=== PATIENT | male | born 2000 | race Caucasian/White ===

== ENCOUNTER 2018-06-23 01:27 | Observation (INO) | payer OTHER ==
[2018-06-23] MEDS ORDERED: ONDANSETRON 4 MG/2 ML VIAL ONE ×2 (01:35→03:32)
[2018-06-23] MEDS ORDERED: NS 1,000 ML IV ONE (01:44)
--- NOTE | 2018-06-23 01:45 | EDPHY ---
H & P Stated Complaint: RLQ [id number] 06/22 Time Seen by Provider: 06/23/18 01:32 HPI/ROS: HPI The patient presents with right lower quadrant abdominal pain that began at about 10:00 p.m. Tonight. Symptoms started slowly and got progressively worse. Initially the pain was diffuse in his lower abdomen, however now it is only in the right lower quadrant. It is aching in nature. It is worse when he moves. He had 1 episode of vomiting. He has not had a fever. He ate dinner at about 7:00 p.m.. REVIEW OF SYSTEMS 10 systems were reviewed and negative with the exception of the elements mentioned in the history of present illness. PMHx: Healthy, no diabetes Soc Hx: College student PHYSICAL General Appearance: Alert, no distress Eyes: Pupils equal and round no pallor or injection ENT, Mouth: Mucous membranes moist Respiratory: There are no retractions, lungs are clear to auscultation Cardiovascular: Regular rate and rhythm Gastrointestinal: Abdomen is soft and tender in the right lower quadrant, no masses, bowel sounds normal Neurological: A&O, moves all extremities Skin: Warm and dry, no rashes Musculoskeletal: Neck is supple non tender Extremities: symmetrical, full range of motion Psychiatric: Patient is oriented X 3, there is no agitation Source: Patient Exam Limitations: No limitations - Personal History Current Tetanus Diphtheria and Acellular Pertussis (TDAP): Yes - Medical/Surgical History Hx Asthma: No Hx Chronic Respiratory Disease: No Hx Diabetes: No Hx Cardiac Disease: No Hx Renal Disease: No Hx Cirrhosis: No Hx Alcoholism: No Hx HIV/AIDS: No Hx Splenectomy or Spleen Trauma: No Other PMH: denies - Social History Smoking Status: Never smoked Constitutional: Initial Vital Signs Temperature (C) 36.8 C 06/23/18 01:29 Heart Rate 84 06/23/18 01:29 Respiratory Rate 16 06/23/18 01:29 Blood Pressure 124/63 H 06/23/18 01:29 O2 Sat (%) 96 06/23/18 01:29 O2 Delivery Mode Room Air Allergies/Adverse Reactions: No Known Allergies Allergy (Unverified 06/23/18 01:28) Home Medications: Medication Instructions Recorded Pepto-Bismol 06/23/18 Medical Decision Making - Diagnostics Imaging Results: Ultrasound right lower quadrant though is blind noncompressible appendix measuring up to 1 mm in the area of maximal tenderness, consistent with acute appendicitis Imaging: Discussed imaging studies w/ electroencephalograph technician Radiologist, I viewed and interpreted images myself Differential Diagnosis: 17-year-old male presents with several hours of right lower quadrant abdominal pain, nausea, vomiting, anorexia. This is concerning for appendicitis versus mesenteric adenitis. Labs reveal a leukocytosis of 17,000. Ultrasound confirms appendicitis. I consulted with Dr. Mckinnon of General surgery who will see the patient. I have ordered antibiotics and fluids for him. - Data Points Laboratory Results: Laboratory Results 06/23/18 01:40 06/23/18 01:40 06/23/18 06/23/18 01:40 01:40 WBC 17.69 10^3/uL H 10^3/uL (3.80-9.50) RBC 4.86 10^6/uL 10^6/uL (4.40-6.38) Hgb 15.9 g/dL g/dL (13.7-17.5) Hct 45.7 % % (40.0-51.0) MCV 94.0 fL fL (81.5-99.8) MCH 32.7 pg pg (27.9-34.1) MCHC 34.8 g/dL g/dL (32.4-36.7) RDW 11.9 % % (11.5-15.2) Plt Count 207 10^3/uL 10^3/uL (150-400) MPV 9.1 fL fL (8.7-11.7) Neut % (Auto) 77.3 % H % (39.3-74.2) Lymph % (Auto) 15.2 % % (15.0-45.0) [place] % (Auto) 6.3 % % (4.5-13.0) Eos % (Auto) 0.7 % % (0.6-7.6) Baso % (Auto) 0.2 % L % (0.3-1.7) Nucleat RBC Rel Count 0.0 % % (0.0-0.2) Absolute Neuts (auto) 13.67 10^3/uL H 10^3/uL (1.70-6.50) Absolute Lymphs (auto) 2.69 10^3/uL 10^3/uL (1.00-3.00) Absolute Monos (auto) 1.11 10^3/uL H 10^3/uL (0.30-0.80) Absolute Eos (auto) 0.13 10^3/uL 10^3/uL (0.03-0.40) Absolute Basos (auto) 0.04 10^3/uL 10^3/uL (0.02-0.10) Absolute Nucleated RBC 0.00 10^3/uL 10^3/uL (0-0.01) Immature Gran % 0.3 % % (0.0-1.1) Immature Gran # 0.05 10^3/uL 10^3/uL (0.00-0.10) Sodium 140 mEq/L mEq/L (135-145) Potassium 3.8 mEq/L mEq/L (3.5-5.2) Chloride 102 mEq/L mEq/L (97-110) Carbon Dioxide 28 mEq/l mEq/l (22-31) Anion Gap 10 mEq/L mEq/L (6-14) BUN 13 mg/dL mg/dL (7-23) Creatinine 1.1 mg/dL mg/dL (0.7-1.3) Estimated GFR > 60 Glucose 121 mg/dL H mg/dL (70-100) Calcium 9.3 mg/dL mg/dL (8.5-10.4) Total Bilirubin 0.3 mg/dL mg/dL (0.1-1.4) AST 23 IU/L IU/L (17-59) ALT 18 IU/L L IU/L (21-72) Alkaline Phosphatase 73 IU/L IU/L (38-126) Total Protein 7.6 g/dL g/dL (6.3-8.2) Albumin 4.6 g/dL g/dL (3.5-5.0) Medications Given: Discontinued Medications Sodium Chloride (Ns) 1,000 mls @ 0 mls/hr IV EDNOW ONE; Wide Open PRN Reason: Protocol Stop: 06/23/18 01:45 Last Admin: 06/23/18 01:52 Dose: 1,000 mls Ceftriaxone Sodium/Dextrose (Rocephin 1 Gm (Premix)) 50 mls @ 100 mls/hr IV EDNOW ONE PRN Reason: Protocol Stop: 06/23/18 02:43 Last Admin: 06/23/18 02:20 Dose: 50 mls Metronidazole/Sodium Chloride (Flagyl 500 Mg (Premix)) 100 mls @ 100 mls/hr IV EDNOW ONE PRN Reason: Protocol Stop: 06/23/18 03:14 Last Admin: 06/23/18 02:46 Dose: 100 mls Departure - Departure Disposition: [facility] Inpatient Acute Clinical Impression: Acute appendicitis Qualifiers: Acute appendicitis type: with localized peritonitis Appendicitis gangrene presence: without gangrene Appendicitis perforation presence: without perforation Appendicitis abscess presence: without abscess Qualified Code(s): K35.30 - Acute appendicitis with localized peritonitis, without perforation or gangrene Condition: Fair
[2018-06-23 01:49] LABS: PLATELET COUNT 207 10^3/uL (150-400)
[2018-06-23] MEDS ORDERED: NS 1,000 ML IV SCH (02:15)
[2018-06-23] MEDS ORDERED: HEPARIN 5,000 UNIT/0.5 ML INJ ONE (03:14)
[2018-06-23] MEDS ORDERED: ceFAZolin 1 GM/5 ML SYR ONE (03:15)
[2018-06-23] MEDS ORDERED: PROPOFOL 200 MG/20 ML VIAL ONE (03:31)
[2018-06-23] MEDS ORDERED: fentaNYL 100 MCG/2 ML INJ ONE ×3 (03:32→04:42)
[2018-06-23] MEDS ORDERED: LIDOCAINE 2% 5 ML SDV ONE (03:32)
[2018-06-23] MEDS ORDERED: DEXAMETHASONE 4 MG/ML VIAL ONE ×2 (03:32)
[2018-06-23] MEDS ORDERED: ROCURONIUM 50 MG/5 ML VIAL ONE (03:33)
[2018-06-23] MEDS ORDERED: HYDROmorphONE/DILAUDID 1 MG/ML INJ IVP PRN (03:39)
[2018-06-23] MEDS ORDERED: MIDAZOLAM 2 MG/2 ML VIAL ONE (03:46)
[2018-06-23] MEDS ORDERED: MIDAZOLAM 2 MG/2 ML VIAL IVP ONE (03:46)
--- NOTE | 2018-06-23 03:48 | PDANEPAE ---
ANE History of Present Illness RLQ pain. suspected appendicitis ANE Past Medical History - Cardiovascular History Hx Hypertension: No Hx Arrhythmias: No Hx Chest Pain: No Hx Coronary Artery / Peripheral Vascular Disease: No Hx CHF / Valvular Disease: No Hx Palpitations: No - Pulmonary History Hx COPD: No Hx Asthma/Reactive Airway Disease: No Hx Recent Upper Respiratory Infection: No Hx Oxygen in Use at Home: No Hx Sleep Apnea: No - Endocrine History Hx Diabetes: No Hypothyroid: No Hyperthyroid: No Obesity: no - Renal History Hx Renal Disorders: No - Liver History Hx Hepatic Disorders: No ANE Review of Systems Review of systems is: negative Review of Systems: - Exercise capacity Exercise capacity: >=4 METS ANE Patient History - Allergies Allergies/Adverse Reactions: No Known Allergies Allergy (Unverified 06/23/18 01:28) - Home Medications Home medications: none Home Medications: Pepto-Bismol 06/23/18 [Last Taken Unknown] - NPO status NPO Status: no food or drink >8 hours NPO Since - Liquids (Date): 06/22/18 NPO Since - Liquids (Time): 23:00 NPO Since - Solids (Date): 06/22/18 NPO Since - Solids (Time): 19:00 - Anes Hx Anes Hx: no prior problems - Smoking Hx Smoking Status: Never smoked - Family Anes Hx Family Anes Hx: none ANE Labs/Vital Signs - Labs Result Diagrams: 06/23/18 01:40 06/23/18 01:40 - Vital Signs Vital Signs: reviewed preoperatively; see RN documention for details Blood Pressure: 119/65 Heart Rate: 64 Respiratory Rate: 16 O2 Sat (%): 97 Height: 177.8 cm Weight: 68.039 kg ANE Physical Exam - Airway Neck exam: FROM Mallampati Score: Class 1 Mouth exam: normal dental/mouth exam - Pulmonary Pulmonary: no respiratory distress - Cardiovascular Cardiovascular: regular rate and rhythym - ASA Status ASA Status: I, E ANE Anesthesia Plan Anesthesia Plan: general endotracheal anesthesia
[2018-06-23] MEDS ORDERED: LR 1,000 ML IV SCH (04:00)
--- NOTE | 2018-06-23 04:35 | GHP ---
DATE OF ADMISSION: 06/23/2018 ADMITTING DIAGNOSIS: Acute appendicitis. HISTORY: The patient is a 17-year-old student at . At 7 p.m. tonight, he had chicken wings and Dr Pepper; at 10 p.m., he had onset of a "stomach pain;" at 11:45, he vomited. The pain became localized in the right lower quadrant. He tried Pepto-Bismol and 7 Up without effect and at 1:15, he came to the ER. There is no history of a recent upper respiratory tract infection or diarrhea. There is no history of a similar abdominal process or abdominal surgery. There is no history of antibiotic use or travel in the last 6 months, and there is no personal or family history of inflammatory bowel disease. PAST MEDICAL HISTORY: He does not smoke or use tobacco and never has. He does drink approximately 5 drinks 1 night a week. ALLERGIES: He has use no known drug allergies. MEDICATIONS: He is not taking medications on a regular basis. PAST SURGICAL HISTORY: His only surgery has been wisdom tooth extraction. There is no history of rheumatic fever, tuberculosis, hepatitis, or transfusions. REVIEW OF SYSTEMS: He wears lenses for visual correction. There are no limits on his activities. No history of steroid use in the last 6 months. Review of systems otherwise quite negative. PHYSICAL EXAMINATION: VITAL SIGNS: His blood pressure is 117/66, at 60. Respirations are 16. Room air saturation is 97%. GENERAL: He is awake, alert, pleasant and interactive. NEUROLOGIC: There are no focal lateralizing neurologic findings. He is oriented to person, place, and time. HEENT: Equal, round, and reactive to light and accommodation. Extraocular movements intact. NECK: There is no thyroid enlargement. There are no carotid bruits. Neck is supple. LYMPHATICS: There is no supraclavicular, cervical, axillary, or inguinal lymphadenopathy. BACK: Unremarkable. LUNGS: Clear to auscultation. CARDIAC: Shows S1, S2 to be normal with normal split of S2 without murmurs, rubs, or gallops. ABDOMEN: Shows hypoactive bowel sounds. Obturator and psoas signs are minimally positive. He is tender with cough near McBurney point, 4 on a scale of 1-10. Using the same scale, he is tender as follows to palpation: 1 left upper quadrant, 1 left mid abdomen, 1 left lower quadrant, 3 in the epigastrium , 2 in the periumbilical region, 1 in the suprapubic region, 4 in the right upper quadrant, 4 in the right mid abdomen, 1 in the right lower quadrant. His white blood cell count is 17.7 with 77% neutrophils. His hematocrit is 45. His platelet count is 207. His sodium is 140. His potassium is 3.8, creatinine 1.1. BUN 13, glucose 121. By ultrasound, he has a 9 mm noncompressible tubular structure in the right lower quadrant. IMPRESSION: He has acute appendicitis. PLAN: I will plan a laparoscopic intervention. He understands the planned procedure and wishes to proceed as outlined. /[id number]/MODL MTDD
[2018-06-23] MEDS ORDERED: SUGAMMADEX SODIUM 200 MG/2 ML VIAL IVP ONE (04:36)
[2018-06-23] MEDS ORDERED: KETOROLAC 30 MG/1 ML SDV ONE ×2 (04:44)
[2018-06-23] MEDS ORDERED: HYDROmorphONE/DILAUDID 2 MG/ML INJ IVP PRN (04:50)
[2018-06-23] MEDS ORDERED: ACETAMINOPHEN 500 MG TAB PO PRN (04:50)
[2018-06-23] MEDS ORDERED: LR 500 ML IV PRN (04:50)
[2018-06-23] MEDS ORDERED: PROMETHAZINE HCL 25 MG/ML INJ IVP PRN (04:50)
[2018-06-23] MEDS ORDERED: METOCLOPRAMIDE 10 MG/2 ML VIAL IVP PRN (04:50)
[2018-06-23] MEDS ORDERED: ALBUTEROL 3 ML DEYVIAL IH PRN (04:50)
[2018-06-23] MEDS ORDERED: oxyCODONE IR 5 MG TAB PO PRN (04:50)
[2018-06-23] MEDS ORDERED: fentaNYL 100 MCG/2 ML INJ IVP PRN (04:50)
[2018-06-23] MEDS ORDERED: NALOXONE HCL 0.4 MG/ML INJ IVP PRN (04:50)
[2018-06-23] MEDS ORDERED: MEPERIDINE 25 MG/0.5 ML AMP IVP PRN (04:50)
--- NOTE | 2018-06-23 05:05 | POSTANESTH ---
Post Anesthetic Evaluation Cardiovascular Status: Normal, Stable Respiratory Status: Normal, Stable Level of Consciousness/Mental Status: Can Participate in Eval Pain Control: Adequate, Prn Tx Ordered Nausea/Vomiting Control: Adequate, Prn Tx Ordered Complications Possibly Related to Anesthesia: None Noted
--- NOTE | 2018-06-23 05:20 | POSTOPPROG ---
Post Op Note Date of Operation: 06/23/18 Surgeon: Clint Mckinnon Anesthesia: GET(General Endotracheal) Pre-op Diagnosis: acute appendicitis Post-op Diagnosis: acute appendicitis Indication: acute appendicitis Procedure: laparoscopic appendectomy Findings: acute appendicitis Inf/Abcess present in the surg proc area at time of surgery?: No EBL: Minimal Total fluids administered: 1000 Complications: none Specimen(s): appendix
[2018-06-23] MEDS: ACETAMINOPHEN 500 MG TAB PO SCH ×2 (06:35→11:36)
[2018-06-23] MEDS: KETOROLAC 15 MG/1 ML SDV IVP SCH ×2 (06:48→11:35)
--- NOTE | 2018-06-23 07:36 | GOP ---
DATE OF OPERATION: 06/23/2018 SURGEON: Clint Mckinnon MD ANESTHESIA: General endotracheal. PREOPERATIVE DIAGNOSIS: Acute appendicitis. POSTOPERATIVE DIAGNOSIS: Acute appendicitis. PROCEDURE PERFORMED: Laparoscopic appendectomy. FINDINGS: Acute appendicitis. INDICATIONS: Acute appendicitis. DESCRIPTION OF PROCEDURE: The patient was placed on the operating table in supine position. He had previously emptied his urinary bladder. He was placed under general endotracheal anesthesia. His abdomen was clipped, prepped, and draped. A surgical time-out was carried out and agreed to by all members of the operative team. A curvilinear incision was made in the inferior umbilical fold. Dissection was continued down to the anterior rectus sheath. It was elevated between Allis clamps and divided in the midline. Pursestring #0 PDS was placed. An 11-12 mm disposable Donna trocar was positioned. Intra-abdominal insufflation was carried out to 15 mmHg. An oblique left lower quadrant 5 mm incision was placed and a 5 mm trocar was positioned in intraperitoneally. A second 5 mm incision was placed transversely in the suprapubic region and again a 5 mm trocar was placed. The appendix was identified in the right lower quadrant. The mesoappendix was easily grasped and elevated. The mesoappendix was divided down to the appendiceal base on the cecum with the harmonic scalpel. The lateral peritoneal reflections were taken down. A 35 mm Endo-SVITLANA stapler was used to transect the appendix with a cuff of cecum. The appendix was now removed with EndoCatch bag. Two stray jn were identified and removed. There was no fluid in the pelvis. Irrigation with heparin and Ancef-containing irrigant was carried out. The small bowel was now run for a distance of approximately 3 feet. There was no evidence of mesenteric adenitis or Meckel's diverticulum. There was no evidence of inguinal hernias. The ports were removed under direct vision. At the umbilical port site, inverted simple suture of #0 PDS was placed in the midline of the infraumbilical fascial defect. This was tied. The pursestring was now tied. Hemostasis was deemed to be excellent. Interrupted inverted simple sutures of # 4-0 Vicryl were placed to all skin incisions. Mastisol and Steri-Strips were placed. Band-Aids were positioned. The patient was transferred to recovery in stable and satisfactory condition. /[id number]/MODL MTDD
--- NOTE | 2018-06-23 10:18 | ASMTCMCOM ---
CM Note CM Note Notes: Chart reviewed for discharge planning purposes. 17 year old male s/p appendectomy. No current needs identified, CM available should needs arise. Plan: Likely home independently when medically cleared for discharge to home. Date Signed: 06/23/2018 10:17 AM Electronically Signed By:Evelyn Rodriguez RN
--- NOTE | 2018-06-23 11:46 | SOAPPROG ---
SOAP Progress Note Assessment/Plan: 06/23/18 11:42 POD#0 Assessment: No flatus, VSS, No signifucant bowel sounds, Incisions clean and dry Plan: Clear liquids and ambulation today Subjective: No complaints Objective: Vital Signs Temp Pulse Resp BP Pulse Ox 36.6 C 52 L 16 110/71 98 06/23/18 06:51 06/23/18 07:00 06/23/18 07:00 06/23/18 07:00 06/23/18 07:00 06/22/18 06/23/18 06/24/18 05:59 05:59 05:59 Intake Total 1999 Output Total 10 Balance 1989 - Time Spent With Patient Time Spent With Patient: 15 - Pending Discharge Pending Discharge Within 24 Hours: Yes Pending Discharge Date: 06/24/18 Pending Discharge Time: 11:00 Physical Exam - Physical Exam General Appearance: WD/WN, alert, no apparent distress Neck: non-tender, full range of motion, supple Respiratory: chest non-tender, lungs clear, normal breath sounds Cardiac/Chest: regular rate, rhythm Abdomen: non-tender, soft, other (Distinctly hypoactive bowel sounds) Male Genitalia: deferred Rectal: deferred Back: Normal inspection Skin: normal color, warm/dry Neuro/Psych: no motor/sensory deficits, alert, normal mood/affect, oriented x 3 ICD10 Worksheet Patient Problems: Problems Problem Status Onset Acute appendicitis Acute
[2018-06-23 11:58] VITALS: BP 108/48
--- NOTE | 2018-06-23 16:53 | ASMTLACE ---
LACE Length of stay for Answers: Less than 1 day current admission # of Emergency department Answers: 1-2 visits in the last 6 months Score: 1 Date Signed: 06/23/2018 04:52 PM Electronically Signed By:Evelyn Rodriguez RN
--- NOTE | 2018-06-23 17:30 | GDS ---
DISCHARGE DIAGNOSIS: Acute unruptured appendicitis. SURGERY PERFORMED: Laparoscopic appendectomy. CONDITION AT DISCHARGE: Improved. DISPOSITION: Home. DIET: Unrestricted, although I recommend that he avoid constipating foods, such as bananas, rice, applesauce, and cheese. MEDICATIONS AT DISCHARGE: Include Tylenol 1000 mg every 8 hours by the clock, Toradol 10 mg p.o. q.6 hours for no more than 5 days, and when that is complete , he may substitute Motrin 200 mg every 6 hours. He will be given 5 tablets of 2 mg Dilaudid to take for breakthrough. DISCHARGE INSTRUCTIONS/FOLLOWUP: For the next 3 weeks, he is to lift less than 10 pounds, shower only, keep the Steri-Strips in place. He is to watch for signs of infection. Superficial infection is manifested by warmth, redness, swelling and tenderness and deep space infection will be manifested by loss of appetite, increased abdominal pain, fevers, chills, and general malaise. He will follow up with Dr. Kitchen' office in the next 2 weeks. HOSPITAL COURSE: The patient was admitted and taken to the operating room. Postoperatively, he has done well. He has been passing gas. He took a clear liquid diet and then, a regular diet. His incisions are clean and dry, and he is set for discharge. /[id number]/MODL MTDD
== END 2018-06-23 17:38 | disposition home or self-care (01) ==
LOC: F1N 05:36
PROVIDERS: ADMIT Surgery; ATTEND Surgery
PROC: 0DTJ4ZZ Resection of Appendix, Percutaneous Endoscopic Approach (ICD-10-PCS; principal; 2018-06-23 04:00)
DX: K35.80 Unspecified acute appendicitis (principal)
CPT/HCPCS: 44970; 76705; 96365; 96367; 96372; 96375; 99285; G0378; J0696; J1100; J1644; J1885; J2250; J2405; J2704; J3010